=== PATIENT | male | born 1975 | race Caucasian/White ===

== ENCOUNTER 2019-03-08 08:56 | Inpatient (IN) | payer SELFPAY ==
[2019-03-08 09:25] LABS: Hemoglobin 14.9 g/dL (14.0-18.0); Mean Corpuscular HGB CONC 31.3 g/dL (32.0-36.0); Mean Corpuscular Hemoglobin 32.3 pg (27.0-31.0); Mean Platelet Volume 9.4 fL (7.4-10.4); Platelet Count 169 thou/uL (130-400); RBC Distribution Width 12.1 % (11.5-14.5); White Blood Cell (WBC) Count 7.9 thou/uL (4.8-10.8)
--- NOTE | 2019-03-08 09:44 | RAD ---
XR Chest 1 View Portable HISTORY: Fell in bathtub pain on right side. COMPARISON: None. FINDINGS: Heart size and mediastinum are within normal limits. The lungs are clear of any infiltrativ e process. No pneumothorax or pleural effusion. No rib fractures are identified. IMPRESSION: No active intrathoracic disease.
[2019-03-08 09:46] LABS: ALT (SGPT) 39 U/L (8-55); AST (SGOT) 13 U/L (5-34); Albumin 3.8 g/dL (3.5-5.0); Alcohol Less than 10 mg/dL (Less than 10); Alkaline Phosphatase 129 U/L (40-150); Anion Gap 24 mmol/L (10-20); BUN (Urea Nitrogen) 21 mg/dL (8.9-20.6); Bilirubin, Total 0.9 mg/dL (0.2-1.2); Calc. Creatinine Clearance 0 mL/min (70-130); Calcium 10.2 mg/dL (7.8-10.44); Carbon Dioxide 24 mmol/L (22-29); Chloride 82 mmol/L (98-107); Estimated GFR-MDRD 32; Globulin 3.9 g/dL (2.4-3.5); Lipase 142 U/L (8-78); Potassium 4.3 mmol/L (3.5-5.1); Protein, Total 7.7 g/dL (6.0-8.3); Sodium 126 mmol/L (136-145)
[2019-03-08 09:48] LABS: Glucose 1273 mg/dL (70-105)
[2019-03-08] MEDS ORDERED: Insulin Regular 300 UNITS/3 ML VIAL ONE (10:19)
[2019-03-08 10:29] LABS: Band 12 % (5-11); Eosinophils 1 % (0-10); Lymphocytes 21 % (21-51); MDiff Complete? YES; Macrocytosis SLIGHT = 6-15 cells (100X) (0-5/hpf); Monocytes 1 % (0-10); Myelocyte 1 % (0-0); Neutrophil 64 % (42-75); Platelet Morphology Comment Appears Adequate
[2019-03-08 10:30] LABS: Magnesium 2.1 mg/dL (1.6-2.6); Phosphorus 6.3 mg/dL (2.3-4.7)
[2019-03-08] MEDS ORDERED: Insulin Regular 100 units/100 ml in NS IVPB SCH (10:30)
[2019-03-08] MEDS ORDERED: Calcium Carbonate 500 MG ChewTAB PO PRN (10:40)
[2019-03-08] MEDS ORDERED: Sodium Chloride 0.9% 1,000 ML IV PRN ×4 (10:40)
[2019-03-08] MEDS ORDERED: Senokot S 8.6-50 MG TAB PO PRN (10:40)
[2019-03-08] MEDS ORDERED: NS 0.9% w/ 20 MEQ KCL 1,000 ML IV PRN (10:40)
[2019-03-08] MEDS ORDERED: Acetaminophen 325 MG TAB PO PRN (10:40)
[2019-03-08] MEDS ORDERED: Dextrose 5 %-0.45 % NaCl 1,000 ML IV PRN (10:40)
[2019-03-08] MEDS ORDERED: Ondansetron PF 4 MG/2 ML Vial IVP PRN (10:40)
[2019-03-08] MEDS ORDERED: Bisacodyl 5 MG TAB PO PRN (10:40)
[2019-03-08] MEDS ORDERED: CCU Electrolyte Replacement 1 EACH IVPB ONE (10:40)
[2019-03-08] MEDS ORDERED: HUMULIN R 100 UNITS in Sodium Chloride 0.9% 100 ML IVPB SCH (10:45)
[2019-03-08 11:12] LABS: Bilirubin Negative (Negative); Blood, Urine Negative (Negative); Clarity Clear (Clear); Glucose, Urine (Dipstick) 500 mg/dL (Negative); Leukocyte Negative (Negative); Nitrite Negative (Negative); Protein, Urine (Dipstick) Negative (Neg-Trace); Urobilinogen 0.2 mg/dL (0.2-1.0)
[2019-03-08] MEDS ORDERED: Potassium Phosphate 12 MMOL in Sodium Chloride 0.9% 250 ML 250 ML IV PRN (11:12)
[2019-03-08] MEDS ORDERED: Potassium Phosphate 9 MMOL in Sodium Chloride 0.9% 100 ML IVPB PRN (11:12)
[2019-03-08] MEDS ORDERED: Magnesium 2 GM/50 ML 2 GM in Premix Bag 1 BAG IVPB PRN (11:12)
[2019-03-08] MEDS ORDERED: PHOS-NAK 1 PKT PACK PO PRN ×2 (11:12)
[2019-03-08] MEDS ORDERED: Potassium Phosphate 15 MMOL in Sodium Chloride 0.9% 250 ML 250 ML IV PRN (11:12)
[2019-03-08] MEDS ORDERED: CCU ELECTROLYTE REPLACEMENT PROTOCOL FS PRN (11:12)
[2019-03-08] MEDS ORDERED: Magnesium Oxide 400 MG TAB PO PRN ×2 (11:12)
[2019-03-08] MEDS ORDERED: Potassium Chloride 40 MEQ in Premix Bag 1 BAG IVPB PRN (11:12)
[2019-03-08] MEDS ORDERED: Potassium Chloride 20 MEQ TAB PO PRN (11:12)
[2019-03-08] MEDS ORDERED: Potassium Chloride 40 MEQ in Sodium Chloride 0.9% 250 ML 250 ML IVPB PRN (11:12)
[2019-03-08 11:41] LABS: Bacteria/HPF None Seen HPF (None Seen); Hyaline Casts/LPF NONE SEEN LPF (0-3 Hyaline); RBC/HPF None Seen HPF (0-3); Squamous Epithelial 0-3 HPF (0-3); WBC/HPF None Seen HPF (0-3)
--- NOTE | 2019-03-08 12:21 | HP ---
PRIMARY CARE PHYSICIAN: None. CHIEF COMPLAINT: Weight loss and excessive thirst. HISTORY OF PRESENT ILLNESS: Mr. Boston is a 43-year-old male with past medical history of pancreatitis about 3 years ago and right leg DVT, who presented to the emergency room with above-mentioned complaint. History is mainly obtained by the patient himself and electronical medical records have been reviewed. Case has been discussed with admitting ER physician. Mr. Boston reported to the ER today for continuous excessive thirst, decreased appetite, weight loss, blurred vision, and gas. He reports that he has been feeling more and more weak and he fell on his bathtub, landing on his right side and has been hurting since then. He has history of pancreatitis, which was attributed to his alcoholism about 3 years ago. Now, he thought that he is having pancreatitis again with persistent right-sided pain, so he presented to the ER. He also has a multitude of complaints including the feeling that his belly has been growing bigger. He has some runny bowel movements. He has lost about 20 pounds within the last week. He has not been drinking alcohol for the last month, but he has been excessively drinking sodas and water over the weekend. He reports he has been drinking three 12 pack of sodas as on a daily basis and about three to four 12 pack of water with ice on daily basis as well. He continues to be thirsty even then. He is a chronic smoker and smokes about 1 pack per day. He denies any other recent illnesses. He denies any fever, chills, chest pain, shortness of breath, orthopnea, or PND. He denies any nausea or vomiting. He denies any blood in his stools or black tarry stools. With regard to his history of DVT: He states that it was multiple years ago. He was supposed to take Coumadin, which he took for about 1 year, then he quit taking it. He does not think that he was supposed to take it for the rest of his life. Upon presentation to the ER today, his blood pressure was 166/74. He was otherwise hemodynamically stable. He underwent evaluation, which showed a blood glucose of 1273 with anion gap of 24. He has acute kidney injury with BUN of 21, creatinine of 2.24 with GFR of 32. He also has 12% bands on his differential of WBCs, which are 7.9. Beta-hydroxybutyrate is 3.10. Alcohol level is negligent. His lipase is also slightly elevated at 142. His chest x-ray was otherwise unremarkable. ER COURSE: Was started on insulin drip and IV fluids and is now being admitted to [facility] with a potential diabetic ketoacidosis. The patient has no past history of diabetes. PAST MEDICAL HISTORY: 1. History of DVT, status post 1 year off anticoagulation. 2. Pancreatitis 2 or 3 years ago, supposedly due to alcohol abuse. 3. Chronic alcoholism and alcohol abuse. 4. Tobacco abuse. PAST SURGICAL HISTORY: None reviewed with the patient. PSYCHIATRIC HISTORY: None. SOCIAL HISTORY: He drinks a 6 pack of beer on the weekends. He has not had any drink for the last month. Smokes about 1 pack of cigarettes every day for the last 25 years. Denies any drug abuse. FAMILY HISTORY: Significant for diabetes in great grandfather. His mother and grandfather had emphysema. Denies any family history of coronary artery disease, hypertension, and stroke. ALLERGIES: NO KNOWN MEDICATION ALLERGIES. CURRENT MEDICATIONS: None. REVIEW OF SYSTEMS: A 14-point review of system is done and is negative except for those mentioned in the history and physical. PHYSICAL EXAMINATION: VITAL SIGNS: Upon presentation, blood pressure 166/74, respirations 18, temperature 98.2, saturating 97% on room air, and pulse 94. GENERAL: He appears well nourished and in no acute distress. He is awake, alert, and oriented x3. HEENT: Mucous membrane is dry. No oropharyngeal exudate or erythema. Head is normocephalic and atraumatic. Pupils are equal and reactive to light and accommodation. Extraocular movement intact. NECK: Supple without any lymphadenopathy, JVD, or bruit. CHEST: Clear to auscultation without any wheezing, rales, or rhonchi. HEART: Rate and rhythm is regular without any murmurs, rubs, or gallops. ABDOMEN: Distended. There is no fluid wave on my examination. He has no right upper quadrant tenderness. There is no rebound, guarding, or rigidity. It is soft to palpation. EXTREMITIES: Free of any cyanosis, clubbing, or edema. NEUROLOGICAL: Nonfocal. SKIN: Free of any rashes or bruises. Feels warm and dry to touch. LABORATORY DATA: His CBC shows WBC 7.9, hemoglobin 14.9, and platelet count of 169. He has macrocytosis. Bands 12%. Serum chemistries show sodium 126, potassium 4.3, chloride 82, anion gap 24 with normal bicarb, BUN 21, creatinine 2.24, and blood sugar 1273. Phosphorus is high at 6.3, magnesium 2.1. Ammonia level normal. LFT normal. BNP normal. Lipase 142. Beta-hydroxybutyrate is 3.10. IMAGING DATA: Chest x-ray by my review has no evidence of pleural effusion, edema, or infiltrate. IMPRESSION AND PLAN: 1. Diabetic ketoacidosis. The patient has a high anion gap, but normal bicarb level. ABGs were not drawn to see if this is a compensatory metabolic alkalosis, which has been masking the metabolic acidosis. He also has hyperglycemia and elevated beta-hydroxybutyrate level. He will be admitted to [facility], on insulin drip and IV fluids as per the diabetic ketoacidosis protocol with every 1 hour Accu-Cheks and every 4 hour BMP checks. Follow the magnesium and phosphorus levels as well. Serum osmolality has been sent out. We will obtain ultrasound of the abdomen to make sure that he has not sustained chronic pancreatitis and pancreatic damage as a cause of his new-onset diabetes mellitus. Brief education was provided at this time about dietary and lifestyle modification and need for long-term treatment for diabetes mellitus type 2. The patient verbalized understanding. We will check hemoglobin A1c as well. 2. Acute on chronic pancreatitis. The patient will be kept n.p.o. and we will keep him on IV fluids. Recheck lipase levels in the morning. He seems to have a mild case of acute pancreatitis. Strict alcohol abstinence is advised. Abdominal ultrasound will be ordered. 3. Acute renal insufficiency. No baseline is available. We will hydrate the patient and recheck creatinine in the morning. Avoid any nephrotoxic medications. We will not obtain CT scan to check for pancreatitis for this very reason. I am not sure if the patient has some chronic kidney disease. 4. Hyponatremia. This is pseudohyponatremia from uncontrolled hyperglycemia. We will treat the hyperglycemia and monitor the sodium numbers carefully. 5. Hyperphosphatemia, once again due to acute diabetic ketoacidosis. Follow the levels. 6. Tobacco and alcohol abuse. The patient has been counseled extensively. We will use nicotine patch while he is here. 7. Deep venous thrombosis and gastrointestinal prophylaxis. DISPOSITION: Mr. Boston is currently being admitted to the [facility] for diabetic ketoacidosis and mild acute pancreatitis and acute renal failure. Estimated length of stay at this time is at least 2 to 3 midnights. Further management will depend upon his clinical course. Job ID: [id number]
[2019-03-08] MEDS: NS 0.9% w/ 20 MEQ KCL 1,000 ML IV PRN ×2 (14:21→16:21)
[2019-03-08] MEDS: Nicotine 21 MG PATCH TD SCH (14:36)
[2019-03-08] MEDS: Nicotine 21 MG PATCH TOP SCH (14:36)
[2019-03-08 14:50] VITALS: BMI 24.0
[2019-03-08 15:00] LABS: Hemoglobin A1c 11.1 % (4.0-6.0)
--- NOTE | 2019-03-08 15:08 | ULT ---
ULTRASOUND ABDOMEN: 03/08/19 HISTORY: Pancreatitis. FINDINGS: The liver demonstrates homogeneous echotexture without focal mass or intrahepatic ductal dilatation. There is suggestion of sludge in the gallbladder without gallstones, wall thickening or pericholecy stic fluid. The common duct measures 6 mm in diameter. The kidneys and visualized portions of the aor ta and IVC are normal. The pancreas appears enlarged and somewhat inhomogeneous. The spleen measures 13 cm in length. No ascites is seen. IMPRESSION: 1. No evidence of cholelithiasis. 2. Borderline splenomegaly. 3. Enlarged inhomogeneous pancreas. Clinical correlation for pancreatitis is recommended. POS: [facility]
[2019-03-08 15:13] LABS: Anion Gap 14 mmol/L (10-20); BUN (Urea Nitrogen) 17 mg/dL (8.9-20.6); Calc. Creatinine Clearance 69 mL/min (70-130); Calcium 10.1 mg/dL (7.8-10.44); Carbon Dioxide 33 mmol/L (22-29); Chloride 93 mmol/L (98-107); Estimated GFR-MDRD 52; Glucose 489 mg/dL (70-105); Sodium 137 mmol/L (136-145)
[2019-03-08] MEDS: D5 1/2 NS w/20 mEq KCL 1,000 ML IV PRN ×2 (18:49→22:50)
[2019-03-08 19:18] LABS: Anion Gap 16 mmol/L (10-20); BUN (Urea Nitrogen) 13 mg/dL (8.9-20.6); Calc. Creatinine Clearance 95 mL/min (70-130); Calcium 9.3 mg/dL (7.8-10.44); Carbon Dioxide 31 mmol/L (22-29); Chloride 102 mmol/L (98-107); Estimated GFR-MDRD 76; Glucose 116 mg/dL (70-105); Sodium 146 mmol/L (136-145)
[2019-03-08 19:22] LABS: Potassium 2.8 mmol/L (3.5-5.1)
[2019-03-08] MEDS: Heparin 5,000 UNITS/ML VIAL SC SCH (19:42)
[2019-03-08] MEDS ORDERED: Famotidine/PF 20 mg/2ml Vial SLOW IVP SCH (21:00)
[2019-03-09] MEDS: D5 1/2 NS w/20 mEq KCL 1,000 ML IV PRN ×3 (02:57→11:03)
[2019-03-09 05:15] LABS: Mean Corpuscular HGB CONC 33.1 g/dL (32.0-36.0); Mean Corpuscular Hemoglobin 32.1 pg (27.0-31.0); Platelet Count 143 thou/uL (130-400); RBC Distribution Width 11.8 % (11.5-14.5); Red Blood Cell (RBC) Count 4.04 mill/uL (4.70-6.10); White Blood Cell (WBC) Count 9.1 thou/uL (4.8-10.8)
[2019-03-09 05:42] LABS: Anion Gap 11 mmol/L (10-20); BUN (Urea Nitrogen) 11 mg/dL (8.9-20.6); Calc. Creatinine Clearance 110 mL/min (70-130); Calcium 8.9 mg/dL (7.8-10.44); Carbon Dioxide 28 mmol/L (22-29); Chloride 106 mmol/L (98-107); Estimated GFR-MDRD 90; Glucose 215 mg/dL (70-105); Lipase 105 U/L (8-78); Potassium 3.7 mmol/L (3.5-5.1); Sodium 141 mmol/L (136-145)
[2019-03-09] MEDS: Heparin 5,000 UNITS/ML VIAL SC SCH (10:27)
[2019-03-09] MEDS: Nicotine 21 MG PATCH TD SCH (10:28)
[2019-03-09] MEDS: Nicotine 21 MG PATCH TOP SCH (10:28)
[2019-03-09] MEDS ORDERED: Dextrose 5% in Water 1,000 ML IV PRN (13:03)
[2019-03-09] MEDS ORDERED: Dextrose 50% Abboject 50 ML SYRINGE SLOW IVP PRN (13:03)
--- NOTE | 2019-03-09 13:08 | PDOC.PN ---
- Subjective Encounter Start Date: 03/09/19 Encounter Start Time: 13:06 Doing well overall. Tolerating a little food. Has some hiccups. - Objective Vital Signs & Weight: Vital Signs (12 hours) Temp Pulse Ox 03/09/19 11:26 99.1 F 03/09/19 08:00 97 03/09/19 07:40 98.8 F 03/09/19 03:48 99.2 F Weight Weight 168 lb Most Recent Monitor Data Heart Rate from ECG 77 NIBP 148/84 NIBP BP-Mean 105 Respiration from ECG 13 SpO2 99 I&O: 03/08/19 03/09/19 03/10/19 06:59 06:59 06:59 Intake Total 5490.8 2030 Output Total 950 675 Balance 4540.8 1355 Result Diagrams: 03/09/19 05:05 03/09/19 05:05 Additional Labs: Accuchecks 03/09/19 03/09/19 03/09/19 11:00 10:06 09:14 POC Glucose 156 H 190 H 229 H 03/09/19 03/09/19 03/09/19 08:14 07:00 06:04 POC Glucose 214 H 216 H 217 H 03/09/19 03/09/19 03/09/19 05:08 04:04 03:02 POC Glucose 210 H 171 H 153 H 03/09/19 03/09/19 03/08/19 02:06 00:07 22:04 POC Glucose 141 H 151 H 162 H 03/08/19 03/08/19 03/08/19 21:06 20:14 18:26 POC Glucose 155 H 134 H 127 H 03/08/19 03/08/19 03/08/19 17:23 16:29 14:45 POC Glucose 220 H 319 H 490 H 03/08/19 03/08/19 03/08/19 13:42 12:54 11:47 POC Glucose Greater than 550 H* Greater than 550 H* Greater than 550 H* 03/08/19 09:20 POC Glucose Greater than 550 H* Phys Exam - Physical Examination Constitutional: NAD Respiratory: no wheezing, no rales, no rhonchi, clear to auscultation bilateral Cardiovascular: RRR, no significant murmur Gastrointestinal: soft, non-tender, no distention Musculoskeletal: no edema Psychiatric: normal affect, A&O x 3 Dx/Plan (1) DKA (diabetic ketoacidoses) Code(s): E11.10 - TYPE 2 DIABETES MELLITUS WITH KETOACIDOSIS WITHOUT COMA Status: Acute (2) DM type 1 (diabetes mellitus, type 1) Status: Acute (3) Pancreatitis Code(s): K85.90 - ACUTE PANCREATITIS WITHOUT NECROSIS OR INFECTION, UNSP Status: Acute (4) Alcohol abuse Code(s): F10.10 - ALCOHOL ABUSE, UNCOMPLICATED Status: Acute (5) Diarrhea Code(s): R19.7 - DIARRHEA, UNSPECIFIED Status: Acute (6) Acute renal failure Status: Acute - Plan * Stop the insulin gtt. * Give Lantus now. * Start daily Lantus in am. * SSI. * Diabetic teaching occurring now. * Ambulate. * He is tolerating a diet.
[2019-03-09] MEDS ORDERED: Insulin Glargine 12 UNITS in Pre-Filled Syringe SC SCH (13:15)
[2019-03-09] MEDS: HumaLOG 300 UNITS/3 ML VIAL SC PRN (17:26)
[2019-03-09] MEDS: Simethicone Chewable 80 MG TAB PO SCH ×2 (18:22→21:23)
--- NOTE | 2019-03-09 19:12 | CON ---
DATE OF CONSULTATION: 03/09/2019 SERVICE: Pulmonary Medicine. REASON FOR CONSULTATION: [facility] patient. HISTORY OF PRESENT ILLNESS: The patient is a 43-year-old white male with past medical history significant for acute pancreatitis that was diagnosed about 2 years ago. This was associated with alcohol use. Since then, the patient has actually been doing quite well, but 5 to 6 days ago, he started having increasing epigastric discomfort, and feeling lousy. He had an aversion for food and then basically stopped eating anything. He continued to make some urine. He got significantly dehydrated, but had a hard time tolerating p.o. He did not specifically have any nausea or vomiting. He is passing lots of gas. There has been no bowel movements, however. He presented to the emergency department. His blood sugar was 1200. He was tucked into the [facility] with a diagnosis of diabetic ketoacidosis. He was put on insulin drip. Overnight, his blood sugars improved. Currently, he continues to have this epigastric discomfort, and does not want to eat any food. His acidosis has been corrected long ago. There were no significant overnight events otherwise. He did not have any fevers, chills, cough, sputum production, rashes, or hot and red swollen joints. PAST MEDICAL HISTORY: 1. History of alcohol abuse. 2. History of acute pancreatitis. 3. History of DVT, off anticoagulation x1 year. 4. Tobacco abuse. 5. Diabetes mellitus, new diagnosis. PAST SURGICAL HISTORY: None. SOCIAL HISTORY: He drinks a 6-pack of beer on the weekends. He has not had anything to drink in the last month. He smokes about a pack of cigarettes on a daily basis and has about a 30 pack-year history of smoking. He denies any illicit drugs. He has no exposure to chemicals, dust, asbestos, or tuberculosis. FAMILY HISTORY: Noncontributory. ALLERGIES: NO KNOWN DRUG ALLERGIES. MEDICATIONS: List of his inpatient medications were reviewed. No specific updates were made at this time. REVIEW OF SYSTEMS: General; head, eyes, ears, nose, and throat; cardiovascular, respiratory, GI, , musculoskeletal, neurologic, and skin are negative, except as mentioned is the HPI. PHYSICAL EXAMINATION: VITAL SIGNS: Afebrile, pulse 77, blood pressure 133/83, respirations 14, saturation 98% on room air. GENERAL: The patient is awake and alert, in no apparent distress. LUNGS: Very good air entry. There is no prolonged expiratory phase or wheezing present. HEART: Normal rate and regular. ABDOMEN: Soft, nontender, and nondistended. Bowel sounds are positive. I pushed in the epigastric region, he really did not have any grimace or guarding. There is certainly no rebound. Bowel sounds are active. GENITOURINARY: No Garza catheter in place. NEUROLOGIC: Grossly nonfocal. LABORATORY DATA: WBC 9.1, hemoglobin 13.0, platelets 143,000. Blood sugar ranges from 153 to 214. Originally, he was 1200. Basic metabolic profile is completely unremarkable at this time. Lipase is downtrending to 105. Ammonia 33, magnesium 2.1, phosphorus 6.3. Liver function studies were unremarkable. BNP 41. Urinalysis is positive for minimal ketonuria and glycosuria. Beta-hydroxybutyric acid was only 3.1. Plasma alcohol level is less than 10. Urine culture is negative to date. IMAGING STUDIES: 1. Abdominal ultrasound demonstrates normal common bile duct size. There is an inhomogeneous texture to the pancreas. 2. Chest x-ray demonstrates no acute cardiopulmonary abnormality. ASSESSMENT: 1. Starvation ketosis. 2. Dehydration, severe. 3. Type 2 diabetes mellitus, new onset. 4. Acute kidney injury, resolved. 5. Epigastric pain. DISCUSSION AND PLAN: I will schedule a couple of doses of simethicone. It sounds as though the patient is having some epigastric discomfort that has been coming and going for a couple of months, but became consistent and persistent over the last 5 days. It could be a sequela of chronic pancreatitis or peptic ulcer disease. Either way, GI consultation is going to be placed to consider additional diagnostic steps. At this point, he is stable for transition to the floor. I will initiate Pepcid twice daily, and schedule couple doses of simethicone. Laboratories will be repeated tomorrow morning. Pulmonary/Critical Care will continue to follow along. 70 minutes have been devoted to this patient in various activities. I personally reviewed all imaging studies and laboratory data noted within this document. For fifty percent of this time, I was interacting with the patient at the bedside or coordinating care with the care team. For the remainder of the time I was immediately available to the patient in the hospital unit. Job ID: [id number] [facility]
[2019-03-09] MEDS: Pantoprazole 40 MG VIAL IVP SCH (20:43)
--- NOTE | 2019-03-10 02:21 | CON ---
DATE OF CONSULTATION: 03/09/2019 CHIEF COMPLAINT: Abdominal pain and loss of appetite. HISTORY OF PRESENT ILLNESS: Mr. Boston is a 43-year-old man who started with epigastric pressure type pain close to 2 weeks ago. He had some back aching associated with that. He had no nausea, vomiting, diarrhea or constipation. The pain went on for several days and then improved. However, subsequent to that, he developed food aversion and severe thirst. He was drinking large amounts of soda and water per day. Ultimately, he came into the emergency room yesterday with gas, bloating, loss of appetite and thirst. He was found to have elevated blood glucose at 1273. He was noted to have acidosis and elevated beta hydroxy butyrate. He was started on an insulin drip and his acidosis improved and he started oral intake again and he states that he now feels better and he is not having any problems. PAST MEDICAL HISTORY: DVT in the left lower extremity years ago. 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 He had told other physicians that it may have been more like two years ago. PAST SURGICAL HISTORY: Negative. FAMILY HISTORY: Negative for GI malignancy. SOCIAL HISTORY: He states that he had maybe 6 pack of beer in the last 6 months. He had told the ER physicians that he was drinking more than that. He smokes a pack a day. No drugs. ALLERGIES: PENICILLIN. MEDICATIONS: Prior to admission, aspirin. CURRENT INPATIENT MEDICATIONS: Include: 1. Enoxaparin. 2. Insulin. 3. Nicotine patch. 4. Simethicone. REVIEW OF SYSTEMS: Negative x10 systems reviewed except as stated in the history of present illness. PHYSICAL EXAMINATION: VITAL SIGNS: Temperature 99.7, blood pressure 133/83, pulse 77. GENERAL: He is in no acute distress. He is alert and oriented x3. However, he gives inconsistent history with different physicians. HEENT: His eyes have no scleral icterus. Oropharynx is clear without lesions. No cervical or supraclavicular lymphadenopathy. LUNGS: Clear to auscultation bilaterally. HEART: Regular rate and rhythm without murmur. ABDOMEN: Soft, nontender, and nondistended. Bowel sounds are present. EXTREMITIES: No lower extremity edema. LABORATORY DATA: Creatinine 0.71, down from 2.24 on initial presentation. Lipase is 105 today, down from 142 yesterday. His upper limit of normal in this lab is 78, albumin 3.8, bilirubin 0.9, AST 13, ALT 39, alkaline phosphatase 129. IMPRESSION: 1. Epigastric pain. His pain is currently doing better. This could be peptic ulcer or related to chronic pancreatitis. I recommended upper endoscopy to help differentiate and currently states he is feeling better and does not want anything else done. 2. Acute renal failure, improved. 3. New diagnosis of insulin-dependent diabetes. 4. Diabetic ketoacidosis/starvation ketosis. RECOMMENDATIONS: 1. Proton pump inhibitor daily. 2. Complete alcohol abstinence. 3. He declines upper endoscopy at this time. 4. I will sign off. Please call if GI can be of assistance. Job ID: [id number]
[2019-03-10 04:31] LABS: Band 4 % (5-11); Eosinophils 3 % (0-10); Hemoglobin 13.5 g/dL (14.0-18.0); Lymphocytes 17 % (21-51); MDiff Complete? YES; Mean Corpuscular HGB CONC 33.7 g/dL (32.0-36.0); Mean Corpuscular Hemoglobin 32.6 pg (27.0-31.0); Mean Corpuscular Volume 96.8 fL (78.0-98.0); Mean Platelet Volume 8.4 fL (7.4-10.4); Monocytes 7 % (0-10); Neutrophil 69 % (42-75); Platelet Count 150 thou/uL (130-400); Platelet Morphology Comment Appears Adequate; RBC Distribution Width 11.8 % (11.5-14.5); Red Blood Cell (RBC) Count 4.14 mill/uL (4.70-6.10); White Blood Cell (WBC) Count 10.3 thou/uL (4.8-10.8)
[2019-03-10 04:33] LABS: Anion Gap 15 mmol/L (10-20); BUN (Urea Nitrogen) 15 mg/dL (8.9-20.6); Calc. Creatinine Clearance 109 mL/min (70-130); Calcium 9.4 mg/dL (7.8-10.44); Carbon Dioxide 22 mmol/L (22-29); Chloride 102 mmol/L (98-107); Estimated GFR-MDRD 89; Glucose 295 mg/dL (70-105); Phosphorus 3.4 mg/dL (2.3-4.7); Potassium 4.4 mmol/L (3.5-5.1); Sodium 135 mmol/L (136-145)
[2019-03-10] MEDS: HumaLOG 300 UNITS/3 ML VIAL SC PRN ×4 (06:36→19:57)
--- NOTE | 2019-03-10 08:45 | EKG ---
Test Reason : Blood Pressure : / mmHG Vent. Rate : 088 BPM Atrial Rate : 088 BPM P-R Int : 146 ms QRS Dur : 098 ms QT Int : 376 ms P-R-T Axes : 069 -27 054 degrees QTc Int : 454 ms Normal sinus rhythm Possible Left atrial enlargement Borderline ECG Confirmed by GABINO MOODY MD ([id number]), editor dictionary SANDOR TAI ([id number]) on 03/10/2019 8:41:12 AM Also confirmed by GABINO MOODY MD ([id number]), editor dictionary SANDOR TAI ([id number]) on 03/10/2019 8:44:53 AM Referred By: Confirmed By:GABINO MOODY MD
[2019-03-10] MEDS ORDERED: Insulin Glargine 20 UNITS in Pre-Filled Syringe SC SCH (09:00)
[2019-03-10] MEDS: Pantoprazole 40 MG VIAL IVP SCH (09:50)
[2019-03-10] MEDS: Enoxaparin Sodium 40 MG/0.4 ML SYRINGE SC SCH (09:50)
[2019-03-10] MEDS: Simethicone Chewable 80 MG TAB PO SCH ×3 (09:50→19:53)
[2019-03-10] MEDS: Nicotine 21 MG PATCH TD SCH (09:52)
--- NOTE | 2019-03-10 14:14 | PRG ---
DATE OF SERVICE: 03/10/2019 SERVICE: Pulmonary Medicine. INTERVAL HISTORY: The patient is doing really quite well from respiratory standpoint. He is breathing comfortably. He has no complaints of chest pain, fevers, cough, nausea, vomiting, or diarrhea. Otherwise, he is returning to his usual state of health. I gave him a medicine yesterday. After he got that medication, he says that immediately, all of his hiccups and difficulties went away. PHYSICAL EXAMINATION: VITAL SIGNS: Afebrile. Pulse 99, blood pressure 128/74, respirations 17, and saturation 100% on room air. GENERAL: The patient is awake and alert, in no apparent distress. LUNGS: Very good air entry. There is no prolonged expiratory phase, wheezing, or crackles present. HEART: Normal rate, regular. ABDOMEN: Soft, nontender, and nondistended. Bowel sounds are positive. MUSCULOSKELETAL: No cyanosis or clubbing. There is no pitting in the bilateral lower extremities. NEUROLOGIC: Grossly nonfocal. LABORATORY DATA: WBC 10.3, hemoglobin 13.5, platelets 150,000. Basic metabolic profile is unremarkable. Magnesium however is 1.4. Urinalysis is unremarkable. ASSESSMENT: 1. Starvation ketosis. 2. Dehydration, resolved. 3. Diabetes mellitus, new onset. 4. Acute kidney injury, resolved. 5. Epigastric abdominal pain, resolved. DISCUSSION AND PLAN: The patient is doing absolutely wonderful from respiratory standpoint. His acidosis has resolved. As such, he is stable for transition out of the IMCU to the medical unit. I will replace magnesium once again. At this point, he has no further requirements for inpatient Pulmonary or Critical Care opinion, and when he leaves this location, we will sign off. Please call with additional questions or concerns through time. Job ID: [id number]
--- NOTE | 2019-03-10 19:54 | PDOC.PN ---
- Subjective Encounter Start Date: 03/10/19 Encounter Start Time: 13:00 Doing ok. His mother is at the bedside. They are still concerned about his ability to manage the DM at home upon discharge. Nurse indicates he has been giving himself the shots with her teaching. - Objective Vital Signs & Weight: Vital Signs (12 hours) Temp Pulse Resp BP Pulse Ox 03/10/19 16:43 98.9 F 95 18 125/73 98 03/10/19 12:00 99.0 F 03/10/19 08:00 98.2 F 100 Weight Admit Weight 168 lb Weight 168 lb Most Recent Monitor Data Heart Rate from ECG 93 NIBP 131/75 NIBP BP-Mean 93 Respiration from ECG 17 SpO2 100 I&O: 03/09/19 03/10/19 03/11/19 06:59 06:59 06:59 Intake Total 5490.8 4058 Output Total 950 2450 Balance 4540.8 1608 Result Diagrams: 03/10/19 04:00 03/10/19 04:00 Additional Labs: Accuchecks 03/10/19 03/10/19 03/10/19 15:31 10:53 06:03 POC Glucose 293 H 239 H 273 H 03/09/19 03/09/19 19:56 12:15 POC Glucose 278 H 155 H Phys Exam - Physical Examination Constitutional: NAD Respiratory: no wheezing, no rales, no rhonchi Cardiovascular: RRR, no significant murmur Gastrointestinal: soft, non-tender, no distention, positive bowel sounds Musculoskeletal: no edema Psychiatric: normal affect, A&O x 3 Dx/Plan (1) DKA (diabetic ketoacidoses) Code(s): E11.10 - TYPE 2 DIABETES MELLITUS WITH KETOACIDOSIS WITHOUT COMA Status: Resolved (2) DM type 1 (diabetes mellitus, type 1) Status: Acute (3) Pancreatitis Code(s): K85.90 - ACUTE PANCREATITIS WITHOUT NECROSIS OR INFECTION, UNSP Status: Acute (4) Alcohol abuse Code(s): F10.10 - ALCOHOL ABUSE, UNCOMPLICATED Status: Acute (5) Diarrhea Code(s): R19.7 - DIARRHEA, UNSPECIFIED Status: Resolved (6) Acute renal failure Status: Resolved - Plan * Doing great. Can move to floor. * Discussed the DM at length with patient and his mother. * COntinue teaching. * Nurse has contacted resource nurse. They can help with meds at discharge. * Will change to Humulin 70/30 in the morning. * Anticipate discharge tomorrow if we can get reasonable management of glucose. * Tolerating diet without difficulties.
[2019-03-11] MEDS: HumaLOG 300 UNITS/3 ML VIAL SC PRN ×2 (05:38→12:19)
[2019-03-11] MEDS: Nicotine 21 MG PATCH TD SCH (08:05)
[2019-03-11] MEDS: Enoxaparin Sodium 40 MG/0.4 ML SYRINGE SC SCH (08:05)
[2019-03-11] MEDS: HumuLIN 70/30 (300 UNITS/3 ML VIAL) SC SCH ×3 (08:14→16:55)
[2019-03-11 10:22] VITALS: BP 122/67
[2019-03-11 13:47] VITALS: TEMP 98.9
== END 2019-03-11 19:25 | disposition home or self-care (01) | DRG 637 ==
LOC: ERS 08:56 → ERHOLD 10:57 → IMCU/EMU 13:44 → ONC 03-10 16:45
PROVIDERS: ADMIT Internal Medicine; ATTEND Internal Medicine
DX: E10.10 Type 1 diabetes mellitus with ketoacidosis without coma (principal); K85.90 Acute pancreatitis without necrosis or infection, unspecified; N17.9 Acute kidney failure, unspecified; E87.1 Hypo-osmolality and hyponatremia; K86.1 Other chronic pancreatitis; F17.210 Nicotine dependence, cigarettes, uncomplicated; F10.20 Alcohol dependence, uncomplicated; E83.39 Other disorders of phosphorus metabolism; E86.0 Dehydration; Z86.718 Personal history of other venous thrombosis and embolism; Z79.01 Long term (current) use of anticoagulants; Z88.0 Allergy status to penicillin; Z79.82 Long term (current) use of aspirin; R19.7 Diarrhea, unspecified; Y90.0 Blood alcohol level of less than 20 mg/100 ml
CPT/HCPCS: 36415; 36416; 71045; 76700; 80048; 80053; 80307; 81001; 82010; 82140; 83036; 83690; 83735; 83880; 83930; 84100; 85025; 85027; 87086; 90471; 90732; 93005; 96361; 96365; 96366; 96376; C9113; G0009; J1644; J1650; J1815; J2405; J3475; J3480; J3490; S0028